=== PATIENT | male | born 1955 | race Caucasian/White ===

== ENCOUNTER 2023-05-04 16:04 | Inpatient (IN) ==
--- NOTE | 2023-05-04 16:22 | ED Triage Note ---
Date of Service May 04, 2023 History of Present Illness This patient was briefly evaluated while in triage. An abbreviated physical exam was performed. This patient is a 68-year-old Male who presents to the ED for evaluation via EMS feeling poorly for the last few days weak, shaky, hot/cold shakes/chills, nausea IV en route, 500cc fluid bolus breathing at baseline denies SWAIN, CP, abdominal pain, N/V/D urinary frequency Physical Exam GENERAL: Chronically ill-appearing 68-year-old male seated in a wheelchair. CARDIOVASCULAR: RRR RESPIRATORY: CTA ABDOMEN: BS x 4. Nontender to palpation. Initial orders for labs and / or imaging were placed and patient was placed in the waiting area until a bed is available. Please see further documentation for the full ED course.
--- NOTE | 2023-05-04 16:50 | XRay Report ---
XR chest 1V not portable HISTORY: weakness COMPARISON: Chest CT 09/15/2022. FINDINGS: Emphysema again noted. No pneumothorax. No pleural effusions. Stable scarlike densities aga in noted within the right lung apex. No new focal lung consolidations to suggest a pneumonia. No evid ence for pulmonary edema. The heart is normal in size for no acute fractures identified. IMPRESSION: No significant change compared to the prior study. No acute process. Emphysema again noted. ACT 112: Negative or not required by law. Electronically signed by: Rahul Kerr M.D. 05/04/2023 4:49 PM
[2023-05-04 16:52] LABS: Basophils # (auto) 0.06 K/uL (0.00-0.20); Basophils % (auto) 0.7 %; Eosinophils # (auto) 0.02 K/uL (0.00-0.50); Eosinophils % (auto) 0.2 %; Hematocrit (blood only) 41.5 % (42.0-52.0); Immature Granulocytes # (auto) 0.02 K/uL (0.01-0.20); Immature Granulocytes % (auto) 0.2 %; Lymphocytes # (auto) 1.52 K/uL (1.20-3.40); Mean Corpuscular Hemoglobin 32.1 pg (25.0-34.0); Mean Corpuscular Hgb Conc 36.1 g/dL (32.0-36.0); Mean Corpuscular Volume 88.9 fL (80.0-100.0); Mean Platelet Volume 8.9 fL (9.4-12.4); Monocytes # (auto) 0.56 K/uL (0.11-0.59); Neutrophils # (auto) 5.83 K/uL (1.40-6.50); Neutrophils % (auto) 72.9 %; Platelet Count 416 K/uL (130-400); RDW Coefficient of Variation 11.6 % (11.5-14.5); RDW Standard Deviation 37.1 fL (36.4-46.3); Red Blood Count 4.67 M/uL (4.70-6.10); White Blood Count 8.01 K/ul (4.8-10.8)
[2023-05-04 17:08] LABS: Alanine Aminotransferase 16 U/L (7-52); Albumin Globulin Ratio 1.2 (0.9-2); Alkaline Phosphatase 74 U/L (34-104); Anion Gap 10 (3-11); Aspartate Aminotransferase 24 U/L (13-39); BUN Creatinine Ratio 12.9 (10-20); Bilirubin,Total 0.5 mg/dl (0.2-1.0); Blood Urea Nitrogen 12 mg/dl (6-23); Calcium 10.6 mg/dl (8.6-10.3); Carbon Dioxide 31 mmol/L (21-32); Chloride 89 mmol/L (98-107); Creatine Kinase 80 U/L (30-223); Est GFR (African American) 98.1 ml/min; Est GFR (Non-African American) 84.6 ml/min; Globulin 4.2 gm/dl (2.5-4.0); Glucose 91 mg/dl (70-99(Fasting)); Magnesium 1.6 mg/dl (1.7-2.4); Potassium 3.7 mmol/L (3.5-5.1); Sodium 130 mmol/L (136-145); Total Protein 9.2 gm/dl (6.0-8.3)
[2023-05-04 17:14] LABS: Troponin I High Sensitivity 8.4 pg/ml (0-20)
[2023-05-04 17:21] LABS: Thyroid Stimulating Hormone 2.774 uIu/ml (0.300-4.500)
[2023-05-04 17:41] LABS: Adenovirus PCR Not Detected (NotDetected); Bordetella parapertussis PCR Not Detected (NotDetected); Bordetella pertussis PCR Not Detected (NotDetected); Chlamydia pneumoniae PCR Not Detected (NotDetected); Coronavirus 229E PCR Not Detected (NotDetected); Coronavirus CoV-2 (COVID19)PCR Not Detected (NotDetected); Coronavirus HKU1 PCR Not Detected (NotDetected); Coronavirus NL63 PCR Not Detected (NotDetected); Coronavirus OC43PCR Not Detected (NotDetected); Human Metapneumovirus PCR Not Detected (NotDetected); Influenza A PCR Not Detected (NotDetected); Influenza B PCR Not Detected (NotDetected); Mycoplasma pneumoniae PCR Not Detected (NotDetected); Parainfluenza Virus 1 PCR Not Detected (NotDetected); Parainfluenza Virus 2 PCR Not Detected (NotDetected); Parainfluenza Virus 3 PCR Not Detected (NotDetected); Parainfluenza Virus 4 PCR Not Detected (NotDetected); Respiratory Syncytial VirusPCR Not Detected (NotDetected); Rhinovirus/Enterovirus PCR Not Detected (NotDetected)
[2023-05-04] MEDS ORDERED: SODIUM CHLORIDE 0.9% 1,000 ML IV ONE ×2 (19:57→21:29)
[2023-05-04] MEDS ORDERED: MAGNESIUM SULFATE / D5W 1 GM/100 ML BAG IV STA (19:57)
--- NOTE | 2023-05-04 20:15 | Emergency Department Note ---
Impression & Plan Weakness, Diaphoresis, Acute dehydration, Hypomagnesemia, Lyme disease, Acute hyponatremia ED Provider Note NAME: LIZABETH HELM AGE: 68 SEX: M : 1955 ARRIVES VIA: Ambulance INFORMANT: [Patient] ED PROVIDER(S): [Donovan Ramirez MD] CHIEF COMPLAINT: Illness HISTORY OF PRESENT ILLNESS: The patient is a 68-year-old male who has felt poorly for a few days, mostly towards the evenings. He states that he feels nauseated, dizzy, his ears ring and he feels sweaty. He feels washed out. May be mildly short of breath. No real chest pain. The patient has not had diarrhea, he does urinate frequently but there has been no burning. There has been no increased cough. No abdominal pain. No recent tick bites. Patient admits that he maybe is not drinking enough, he typically just tries to drink coffee. PMHx/PSHx/Social Hx: See Below PHYSICAL EXAM: GENERAL: Patient is in no acute distress. Thin and frail. HEENT: No acute trauma, normocephalic atraumatic, mucous membranes dry, no nasal congestion. NECK: No stridor, no adenopathy, no meningismus, trachea is midline. LUNGS: Clear to auscultation bilaterally, no wheeze, no rhonchi, breath sounds equal. Breath sounds are quite diminished bilaterally. HEART: Without murmurs gallops or rubs, regular rate and rhythm. Heart tones are distant ABDOMEN: Soft, nontender, no peritonitis. EXTREMITIES: No cyanosis, full range of motion of all the joints without pain or difficulty. NEUROLOGIC: Oriented x 3, no acute motor or sensory deficits, no focal weakness. SKIN: No jaundice, no diaphoresis. DIFFERENTIAL DIAGNOSIS: Dehydration, electrolyte imbalance, tickborne illness, anemia, UTI, viral illness, cardiac ischemia, among others EMERGENCY DEPARTMENT PROCEDURES: MEDICAL DECISION MAKING: There is no leukocytosis or concerning anemia. There is a mild elevation to the platelet count. Sodium was low at 130. The patient has had some lower sodiums before but today's value is below his typical baseline. There is no renal failure. Magnesium low at 1.6. No concerning liver enzyme elevation. ECG showed a sinus tachycardia, no ischemia. Cardiac enzyme testing x1 was not consistent with acute cardiac injury. The patient appeared to be in a euthyroid state. Urinalysis suggested some dehydration, no infection. Lyme testing was equivocally positive. Respiratory bio fire was completely negative. Chest film showed emphysema, no pneumonia or CHF. On exam, the patient was thin and frail and appeared generally weak. The patient received IV saline, IV magnesium, IV ceftriaxone. The IV ceftriaxone was for potential Lyme disease. The cause for the patient's entire presentation is not completely clear. He certainly appears dehydrated. He does have some electrolyte abnormalities that require correction. He may have Lyme disease. Given all of his findings and his complaints, I do think a hospital stay is warranted. I spoke with the patient and case management, the on-call hospitalist was consulted. Prior/Outside records/notes reviewed: Primary care note from 03/21/2023 discussing his hypertension, emphysema and chronic health issues. ECG per my interpretation: Indication was weakness. The ECG shows a sinus tachycardia with a rate of 102. There is biatrial enlargement. There is no obvious ST elevation, no PVCs. QTc is 461. Continuous Cardiac Monitoring per my interpretation: An order was placed for continuous cardiac monitoring. The monitor shows a rate of 87 with normal sinus rhythm. Imaging/x-ray results per my interpretation: Chest x-ray shows findings of chronic lung disease/emphysema. No infiltrate or CHF Chronic Medical/Social conditions affecting care: Emphysema. Care/Management discussed with: Case management, the on-call hospitalist. Level of care consideration(s): After review of the information above and other included data: --I believe the patient requires escalation of care to admission DISPOSITION: Admission Past Med/Surg History Medical History Emphysema/COPD Hypertension Pulmonary nodule Surgical History History of tonsillectomy Family History Denies family history of Ovarian cancer Prostate cancer Myocardial infarction Breast cancer Colorectal cancer Social History Smoking Status: Current every day smoker Tobacco Type: Pipe Age Started Using Tobacco: 17; packs per day: 1; Cigarettes Per Day: quit cigarettes in June and smokes a pipe; Second Hand Exposure: No; Do You Dip or Chew Tobacco: No; Tobacco Cessation Education Requested by Patient: No Hx Alcohol Use: No Hx Substance Use: No Preferred Language: Azeri Communication Ability: Effective Visual Impairment: Limited Hearing Ability: Normal Syrup Maker Cook Required: No Beliefs That Will Affect Care: None marital status: Single Current Living Situation: Alone Current Living Situation Comment: lives with mother current occupational status: retired How many Children do You have: 1 Other Information That Helps Us Care for You: No Feels Safe at Home: Yes Safety Concerns: Feels Safe At This Time Childhood Exposure to Second-Hand Smoke: Yes Diet: regular caffeine: Yes during the past year weight has: remained stable Dental Care, Regularly: No Physical Activity Frequency: 1-2 Times per Week Seatbelt Use: always Sunscreen Use: No Assistive Devices: None Allergies Allergies Allergy/AdvReac Type Severity Reaction Status Date / Time No Known Allergies Allergy Verified 05/04/23 20:25 Home Meds Home Medications Medication Instructions Recorded Confirmed multivitamin 1 tab PO 3XWK 04/24/18 05/04/23 cholecalciferol (vitamin D3) 1,250 50,000 unit PO WE 05/04/23 05/04/23 mcg (50,000 unit) capsule Previous Rx's Medication Instructions Recorded albuterol sulfate 90 mcg/actuation 2 puff inhalation QID PRN 09/29/22 aerosol inhaler shortness of breath or wheezing #6.7 grams lisinopril 20 1 tab PO DAILY #90 tabs 12/16/22 mg-hydrochlorothiazide 25 mg tablet Results & Data (ED) Vital Signs Vital Signs - 24 hr 05/04/23 16:21 05/04/23 19:33 05/04/23 21:00 Temperature 36.5 C Temperature Source Oral Pulse Rate - Lying Pulse Rate - Sitting Pulse Rate - Standing Pulse Rate 104 H Pulse Rate [Finger] 87 87 Respiratory Rate 22 21 17 Respiratory Effort / Characteristics Non-Labored Respiratory Depth Normal Respiratory Pattern Regular Blood Pressure - Lying Blood Pressure - Sitting Blood Pressure- Standing Blood Pressure 176/99 H Blood Pressure [Right Arm] 183/90 H 177/96 H Blood Pressure Mean 124 Blood Pressure Mean [Right Arm] 121 123 Blood Pressure Position Sitting Pulse Oximetry 98 95 94 Oxygen Delivery Method Room Air Room Air Room Air Sepsis Recent Fever Within 48 Hours No Sepsis New/Unexplained Change in Mental Status No Sepsis Action Taken by Nursing No Action Required 05/04/23 21:20 Temperature Temperature Source Pulse Rate - Lying 87 Pulse Rate - Sitting 94 H Pulse Rate - Standing 101 H Pulse Rate Pulse Rate [Finger] Respiratory Rate Respiratory Effort / Characteristics Respiratory Depth Respiratory Pattern Blood Pressure - Lying 177/96 H Blood Pressure - Sitting 166/90 H Blood Pressure- Standing 145/88 H Blood Pressure Blood Pressure [Right Arm] Blood Pressure Mean Blood Pressure Mean [Right Arm] Blood Pressure Position Pulse Oximetry Oxygen Delivery Method Sepsis Recent Fever Within 48 Hours Sepsis New/Unexplained Change in Mental Status Sepsis Action Taken by Long Term Medications Current Medication List: was personally reviewed by me Laboratory Data Attestation: I reviewed the patient's lab results. 05/05/23 12:33 05/05/23 05:51 Lab Results 05/04/23 05/04/23 05/04/23 Range/Units 15:46 16:25 20:18 WBC 8.01 (4.8-10.8) K/ul RBC 4.67 L (4.70-6.10) M/uL Hgb 15.0 (14.0-18.0) g/dl Hct 41.5 L (42.0-52.0) % MCV 88.9 (80.0-100.0) fL MCH 32.1 (25.0-34.0) pg MCHC 36.1 H (32.0-36.0) g/dL RDW Std Deviation 37.1 (36.4-46.3) fL RDW Coeff of Angelo 11.6 (11.5-14.5) % Plt Count 416 H (130-400) K/uL MPV 8.9 L (9.4-12.4) fL Immature Gran % (Auto) 0.2 % Neut % (Auto) 72.9 % Lymph % (Auto) 19.0 % Lucas % (Auto) 7.0 % Eos % (Auto) 0.2 % Baso % (Auto) 0.7 % Neut # (Auto) 5.83 (1.40-6.50) K/uL Lymph # (Auto) 1.52 (1.20-3.40) K/uL Lucas # (Auto) 0.56 (0.11-0.59) K/uL Eos # (Auto) 0.02 (0.00-0.50) K/uL Baso # (Auto) 0.06 (0.00-0.20) K/uL Immature Gran # (Auto) 0.02 (0.01-0.20) K/uL Sodium 130 L (136-145) mmol/L Potassium 3.7 (3.5-5.1) mmol/L Chloride 89 L (98-107) mmol/L Carbon Dioxide 31 (21-32) mmol/L Anion Gap 10 (3-11) BUN 12 (6-23) mg/dl Creatinine 0.93 (0.6-1.4) mg/dl Est Cr Clr Drug Dosing Not Reportable Est GFR ( Amer) 98.1 ml/min Est GFR (Non-Af Amer) 84.6 ml/min BUN/Creatinine Ratio 12.9 (10-20) Glucose 91 (70-99(Fasting)) mg/dl Lactate (0.4-2.0) mmol/L Calcium 10.6 H (8.6-10.3) mg/dl Magnesium 1.6 L (1.7-2.4) mg/dl Total Bilirubin 0.5 (0.2-1.0) mg/dl AST 24 (13-39) U/L ALT 16 (7-52) U/L Alkaline Phosphatase 74 (34-104) U/L Total Creatine Kinase 80 (30-223) U/L Troponin I High Sens 8.4 (0-20) pg/ml Total Protein 9.2 H (6.0-8.3) gm/dl Albumin 5.0 (3.4-5.0) gm/dl Globulin 4.2 H (2.5-4.0) gm/dl Albumin/Globulin Ratio 1.2 (0.9-2) TSH 2.774 (0.300-4.500) uIu/ml Urine Color Yellow Urine Appearance Clear (Clear) Urine pH 6.5 (4.5-7.5) Ur Specific [place] 1.019 (1.000-1.030) Urine Protein 1+ H (Negative) Urine Glucose (UA) Negative (Negative) Urine Ketones 1+ H (Negative) Urine Blood Negative (Negative) Urine Nitrite Negative (Negative) Urine Bilirubin Negative (Negative) Urine Urobilinogen Negative (Negative) Ur Leukocyte Esterase Negative (Negative) Urine WBC (Auto) 1-5 (0-5) /hpf Urine RBC (Auto) 5-10 H (0-4) /hpf U Hyaline Cast (Auto) 0 (0-5) /lpf U Epithel Cells (Auto) 0-5 (0-5) /lpf Urine Bacteria (Auto) Negative (Negative) Adenovirus (PCR) Not Detected (NotDetected) B. pertussis DNA (PCR) Not Detected (NotDetected) B.parapertussis DNA PCR Not Detected (NotDetected) Lyme Disease IgG Ab (Negative) Lyme Disease IgM Ab (Negative) C. pneumoniae DNA (PCR) Not Detected (NotDetected) Coronavirus OC43 (PCR) Not Detected (NotDetected) Coronavirus HKU1 (PCR) Not Detected (NotDetected) Coronavirus 229E (PCR) Not Detected (NotDetected) SARS-CoV-2 (PCR) Not Detected (NotDetected) Coronavirus NL63 (PCR) Not Detected (NotDetected) Human Metapneumovir PCR Not Detected (NotDetected) Influenza Type A (PCR) Not Detected (NotDetected) Influenza Type B (PCR) Not Detected (NotDetected) M. pneumoniae (PCR) Not Detected (NotDetected) Parainfluenza 1 (PCR) Not Detected (NotDetected) Parainfluenza 2 (PCR) Not Detected (NotDetected) Parainfluenza 3 (PCR) Not Detected (NotDetected) Parainfluenza 4 (PCR) Not Detected (NotDetected) RSV (PCR) Not Detected (NotDetected) Entero/Rhino (PCR) Not Detected (NotDetected) 05/04/23 Range/Units 20:44 WBC (4.8-10.8) K/ul RBC (4.70-6.10) M/uL Hgb (14.0-18.0) g/dl Hct (42.0-52.0) % MCV (80.0-100.0) fL MCH (25.0-34.0) pg MCHC (32.0-36.0) g/dL RDW Std Deviation (36.4-46.3) fL RDW Coeff of Angelo (11.5-14.5) % Plt Count (130-400) K/uL MPV (9.4-12.4) fL Immature Gran % (Auto) % Neut % (Auto) % Lymph % (Auto) % Lucas % (Auto) % Eos % (Auto) % Baso % (Auto) % Neut # (Auto) (1.40-6.50) K/uL Lymph # (Auto) (1.20-3.40) K/uL Lucas # (Auto) (0.11-0.59) K/uL Eos # (Auto) (0.00-0.50) K/uL Baso # (Auto) (0.00-0.20) K/uL Immature Gran # (Auto) (0.01-0.20) K/uL Sodium (136-145) mmol/L Potassium (3.5-5.1) mmol/L Chloride (98-107) mmol/L Carbon Dioxide (21-32) mmol/L Anion Gap (3-11) BUN (6-23) mg/dl Creatinine (0.6-1.4) mg/dl Est Cr Clr Drug Dosing Est GFR ( Amer) ml/min Est GFR (Non-Af Amer) ml/min BUN/Creatinine Ratio (10-20) Glucose (70-99(Fasting)) mg/dl Lactate 1.2 (0.4-2.0) mmol/L Calcium (8.6-10.3) mg/dl Magnesium (1.7-2.4) mg/dl Total Bilirubin (0.2-1.0) mg/dl AST (13-39) U/L ALT (7-52) U/L Alkaline Phosphatase (34-104) U/L Total Creatine Kinase (30-223) U/L Troponin I High Sens (0-20) pg/ml Total Protein (6.0-8.3) gm/dl Albumin (3.4-5.0) gm/dl Globulin (2.5-4.0) gm/dl Albumin/Globulin Ratio (0.9-2) TSH (0.300-4.500) uIu/ml Urine Color Urine Appearance (Clear) Urine pH (4.5-7.5) Ur Specific [place] (1.000-1.030) Urine Protein (Negative) Urine Glucose (UA) (Negative) Urine Ketones (Negative) Urine Blood (Negative) Urine Nitrite (Negative) Urine Bilirubin (Negative) Urine Urobilinogen (Negative) Ur Leukocyte Esterase (Negative) Urine WBC (Auto) (0-5) /hpf Urine RBC (Auto) (0-4) /hpf U Hyaline Cast (Auto) (0-5) /lpf U Epithel Cells (Auto) (0-5) /lpf Urine Bacteria (Auto) (Negative) Adenovirus (PCR) (NotDetected) B. pertussis DNA (PCR) (NotDetected) B.parapertussis DNA PCR (NotDetected) Lyme Disease IgG Ab Positive A (Negative) Lyme Disease IgM Ab Negative (Negative) C. pneumoniae DNA (PCR) (NotDetected) Coronavirus OC43 (PCR) (NotDetected) Coronavirus HKU1 (PCR) (NotDetected) Coronavirus 229E (PCR) (NotDetected) SARS-CoV-2 (PCR) (NotDetected) Coronavirus NL63 (PCR) (NotDetected) Human Metapneumovir PCR (NotDetected) Influenza Type A (PCR) (NotDetected) Influenza Type B (PCR) (NotDetected) M. pneumoniae (PCR) (NotDetected) Parainfluenza 1 (PCR) (NotDetected) Parainfluenza 2 (PCR) (NotDetected) Parainfluenza 3 (PCR) (NotDetected) Parainfluenza 4 (PCR) (NotDetected) RSV (PCR) (NotDetected) Entero/Rhino (PCR) (NotDetected) Administered Medications Enoxaparin Sodium (Enoxaparin Inj 40 Mg/0.4 Ml Syr) 40 mg SQ QAM JONNY Stop: 06/04/23 08:59 Last Admin: 05/05/23 08:19 Dose: 40 mg Documented By: [facility] Lisinopril/HCTZ (Lisinopril/Hctz 20/25mg 1 Tab) 1 tab PO DAILY [facility] Stop: 06/04/23 08:59 Last Admin: 05/05/23 08:19 Dose: 1 tab Documented By: [facility] Ceftriaxone Sodium 1,000 mg/ (Dextrose) 50 mls @ 100 mls/hr IV Q24H [facility]; Protocol Stop: 05/07/23 08:59 Last Infusion: 05/05/23 08:44 Dose: Infused Documented By: Admin: 05/05/23 08:14 Dose: 100 mls/hr Documented By: [facility] Multivitamins (Multivitamin Tab) 1 tab PO MoWeFr [facility] Stop: 06/04/23 08:59 Last Admin: 05/05/23 08:19 Dose: 1 tab Documented By: [facility] Nicotine (Nicotine 21 Mg/24 Hr Tdsy) 21 mg TD QAM JONNY Stop: 06/04/23 11:59 Last Admin: 05/05/23 13:16 Dose: 21 mg Documented By: [facility] Discontinued Medications Sodium Chloride (Nss) 1,000 mls @ 999 mls/hr IV .Q1H1M ONE Stop: 05/04/23 20:57 Last Infusion: 05/04/23 21:43 Dose: Infused Documented By: Admin: 05/04/23 20:10 Dose: 999 mls/hr Documented By: [facility] Magnesium Sulfate/Dextrose (Magnesium Sulfate / D5w) 1 gm in 100 mls @ 100 mls/hr IV NOW STA Stop: 05/04/23 20:56 Last Infusion: 05/04/23 21:43 Dose: Infused Documented By: Admin: 05/04/23 20:26 Dose: 100 mls/hr Documented By: [facility] Sodium Chloride (Nss) 1,000 mls @ 999 mls/hr IV .Q1H1M ONE Stop: 05/04/23 22:29 Last Infusion: 05/05/23 00:17 Dose: Infused Documented By: Admin: 05/04/23 21:53 Dose: 999 mls/hr Documented By: [facility] Ceftriaxone Sodium (Rocephin) 2,000 mg in 50 mls @ 100 mls/hr IV NOW STA Stop: 05/04/23 22:32 Last Infusion: 05/05/23 00:16 Dose: Infused Documented By: Admin: 05/04/23 22:48 Dose: 100 mls/hr Documented By: [facility] Lactated Ringer's (Lr) 1,000 mls @ 80 mls/hr IV .[id number] JONNY Stop: 06/03/23 23:29 Last Admin: 05/05/23 00:37 Dose: 80 mls/hr Documented By: [facility] Magnesium Sulfate/Dextrose (Magnesium Sulfate / D5w) 1 gm in 100 mls @ 50 mls/hr IV Q2H JONNY Stop: 05/05/23 11:44 Last Admin: 05/05/23 11:11 Dose: 50 mls/hr Documented By: Infusion: 05/05/23 10:54 Dose: Infused Documented By: Admin: 05/05/23 08:54 Dose: 50 mls/hr Documented By: SPEEDY Miscellaneous (Patient's Height &/Or Weight Needed) 1 each N/A ONE STA Stop: 05/04/23 23:35 Last Admin: 05/05/23 00:38 Dose: 1 each Documented By: [facility] Imaging Data Radiologist's Impression: Chest X-Ray 05/04/23 16:22 XR chest 1V not portable HISTORY: weakness COMPARISON: Chest CT 09/15/2022. FINDINGS: Emphysema again noted. No pneumothorax. No pleural effusions. Stable scarlike densities again noted within the right lung apex. No new focal lung consolidations to suggest a pneumonia. No evidence for pulmonary edema. The heart is normal in size for no acute fractures identified. IMPRESSION: No significant change compared to the prior study. No acute process. Emphysema again noted. ACT 112: Negative or not required by law. Electronically signed by: Rahul Kerr M.D. 05/04/2023 4:49 PM Discharge Plan Visit Data Chief Complaint: Illness Stated Complaint: DIAPHORETIC IN THE EVENINGS, NOT FEELING WELL ED Provider: Donovan Ramirez Discharge Problem: Weakness, Diaphoresis, Acute dehydration, Hypomagnesemia, Lyme disease, Acute hyponatremia Patient Disposition: Admitted As Inpatient Condition: Fair Discharge Instructions Interventions: ED Discharge Assessment Last Done: 05/04/23 23:39
[2023-05-04 21:38] LABS: Lyme Ab IgM w/WB Rflx Negative (Negative)
[2023-05-04 21:41] LABS: Lyme Ab IgG w/WB Rflx Positive (Negative)
[2023-05-04 21:44] LABS: Appearance Urine Clear (Clear); Bacteria Urine Automated Negative (Negative); Bilirubin Urine Negative (Negative); Blood Urine Negative (Negative); Cast Urine Automated 0 /lpf (0-5); Color Urine Yellow; Epithelial Cell Urine Auto 0-5 /lpf (0-5); Glucose Urine UA Negative (Negative); Ketones Urine 1+ (Negative); Leukocyte Esterase Urine Negative (Negative); Nitrite Urine Negative (Negative); Protein Urine 1+ (Negative); Specific Gravity Urine 1.019 (1.000-1.030); Urobilinogen Urine Negative (Negative); pH Urine 6.5 (4.5-7.5)
[2023-05-04] MEDS ORDERED: cefTRIAXone SODIUM 2,000 MG/50 ML BAG IV STA (22:03)
--- NOTE | 2023-05-04 23:13 | History & Physical Report ---
Date of Service May 04, 2023 Assessment & Plan (1) Illness, unspecified: (2) HTN (hypertension): (3) Emphysema of lung: Plan Pt is a 68 yo male with a past medical history of emphysema, HTN, current smoker who presents to the hospital on 05/04/23 for generalized illness. Generalized illness - CXR wnl, UA wnl, blood cultures pending - lyme IgG +, western blot pending - suspect viral illness, but pt given ceftriaxone to cover for tick-borne as presentation is very nonspecific - will give LR 80/hr - PT/OT evals placed Hyponatremia - Na 130 - appears chronic, as last two values were 132, 133 earlier this year - daily BMP Hypomagnesia - mag 1.6 - repleted in ED - am mag ordered HTN - continue lisinopril/HCTZ Emphysema - continue albuterol VTE prophylaxis: Lovenox 40 SQ qam Diet: regular History of Present Illness Chief Complaint: Generalized illness Primary Care Provider: Ada Ball MD Pt is a 68 yo male with a past medical history of emphysema, HTN, current smoker who presents to the hospital on 05/04/23 for generalized illness. Pt states that last night he started to feel some generalized weakness, fatigue, myalgias, nausea, and sweats. He states he overall felt very lousy. He states that this morning he felt fine, but this evening he started to get the same symptoms again. No fevers. Does note decreased appetite. No congestion, sore throat, cough is chronic from his emphysema and unchanged, no shortness of breath or chest pain, and no vomiting or diarrhea. He states he use to work outside a lot and a lot of his coworkers got lyme and other tick borne illnesses, but he never did. He does note that he worked outside a lot this summer doing yard work. Never noticed a tick bite or ticks on him or in his house. He lives at home alone and completes his ADLs on his own according to him. No blood in the stool or urine. No other complaints at this time. Allergies Allergy/AdvReac Type Severity Reaction Status Date / Time No Known Allergies Allergy Verified 05/04/23 20:25 Home Medications Medication Instructions Recorded Confirmed Type multivitamin 1 tab PO 3XWK 04/24/18 05/04/23 History albuterol sulfate 90 mcg/actuation 2 puff inhalation QID PRN 09/29/22 05/04/23 Rx aerosol inhaler shortness of breath or wheezing #6.7 grams lisinopril 20 1 tab PO DAILY #90 tabs 12/16/22 05/04/23 Rx mg-hydrochlorothiazide 25 mg tablet cholecalciferol (vitamin D3) 1,250 50,000 unit PO WE 05/04/23 05/04/23 History mcg (50,000 unit) capsule Past Med/Surg History Medical History Emphysema/COPD Hypertension Pulmonary nodule Surgical History History of tonsillectomy Family History Denies family history of Ovarian cancer Prostate cancer Myocardial infarction Breast cancer Colorectal cancer Social History Smoking Status: Current every day smoker Tobacco Type: Pipe Age Started Using Tobacco: 17; packs per day: 1; Cigarettes Per Day: quit cigarettes in June and smokes a pipe; Second Hand Exposure: Yes (parents smoked); Do You Dip or Chew Tobacco: No; Hx Alcohol Use: No Hx Substance Use: No Preferred Language: Syriac Communication Ability: Effective Visual Impairment: Limited Hearing Ability: Normal 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 Physical Exam Physical Exam: General: Alert and oriented, no acute distress, thin HEENT: Normocephalic, Cardio: Regular rate and rhythm, Resp: Lungs clear to auscultation b/l, GI: Soft and nontender, nondistended, bowel sounds active Skin: Warm, pink, dry, Results & Data Results & Data Vital Signs (Past 12 Hours) Vital Signs Temp Pulse Pulse Resp BP BP Pulse Ox 05/04/23 21:00 87 17 177/96 H 94 05/04/23 19:33 87 21 183/90 H 95 05/04/23 16:21 36.5 C 104 H 22 176/99 H 98 O2 Del Method 05/04/23 21:00 Room Air 05/04/23 19:33 Room Air 05/04/23 16:21 Room Air Resident Activity Tracking Resident Involvement: Resident Care Provided Care Provided: Adult Hospital Medicine
[2023-05-04] MEDS ORDERED: LACTATED RINGER'S 1,000 ML IV SCH (23:30)
[2023-05-04] MEDS ORDERED: Patient's HEIGHT &/or WEIGHT Needed STA (23:34)
[2023-05-05] MEDS ORDERED: ALBUTEROL HFA 8 GM INHALER INH PRN (00:15)
[2023-05-05 06:24] LABS: Hematocrit (blood only) 35.3 % (42.0-52.0); Hemoglobin 12.7 g/dl (14.0-18.0); Mean Corpuscular Hemoglobin 32.2 pg (25.0-34.0); Mean Corpuscular Volume 89.6 fL (80.0-100.0); Mean Platelet Volume 8.6 fL (9.4-12.4); Platelet Count 312 K/uL (130-400); RDW Coefficient of Variation 11.5 % (11.5-14.5); RDW Standard Deviation 37.2 fL (36.4-46.3); Red Blood Count 3.94 M/uL (4.70-6.10)
[2023-05-05 06:47] LABS: Calcium 8.9 mg/dl (8.6-10.3); Creatinine Clr Calc Pharmacy 57.4 ml/min; Est GFR (African American) 108.8 ml/min; Est GFR (Non-African American) 93.9 ml/min; Magnesium 1.6 mg/dl (1.7-2.4); Phosphorus 2.9 mg/dl (2.5-4.9); Potassium 3.8 mmol/L (3.5-5.1)
--- NOTE | 2023-05-05 07:32 | Hospitalist Progress Note ---
Date of Service May 05, 2023 Assessment & Plan (1) Fatigue: (2) Myalgia: (3) Nausea: (4) Hyponatremia: (5) Hypomagnesemia: (6) HTN (hypertension): (7) Emphysema of lung: Plan Pt is a 68 yo male with a past medical history of emphysema, HTN, current smoker who presents to the hospital on 05/04/23 for generalized illness. Fatigue/Myalgia/Nausea: - Uncertain etiology. - CXR wnl, UA showed 1+ protein and some red cels, but no evidence of UTI, blood cultures pending - Lyme IgG +, Western blot pending - Suspect viral illness, but patient given Ceftriaxone to cover for tick-borne illness as presentation is very nonspecific - PT/OT evals placed Hyponatremia, chronic: - Last NA: 132 - May be secondary to HCTZ, will Hold HCTZ - Repeat BMP AM Hypomagnesia: - Mag 1.6 again this AM - Replacing Mag again, s/p Magnesium Sulfate 1 gm - Repeat BMP AM HTN: - Orthostatic V/s negative -Hold HCT -Lisinopril 10 mg Emphysema: - Chronic cough - Continue Albuterol PRN Disposition: MedSurg VTE prophylaxis: Lovenox 40 SQ qam Diet: regular Admission and Anticipated Discharge Date Admission Date: May 04, 2023 Supervising Physician Co-Signing Physician Notes Resident Physician Supervision Note: I independently interviewed and examined the patient and verified the young history and physical, reviewed labs and image studies and agree with resident findings and care plan. Recheck sodium level further down at 128. Hold HCTZ. follow up in am. Dianne Gamboa is a 68 year-old male with a past medical history significant for emphysema, hypertension, and current smoker who presents to the hospital on 05/04/2023 with a generalized illness. Patient reports that he had been feeling unwell for the past few days with on/off symptoms of generalized weakness, myalgias, fatigue, chills, sweats, and nausea. Symptoms appear to worsen in the later afternoon and towards the evening. Sitting down on his couch and resting appears to help relieve symptoms; however, last night sitting down on his couch actually aggravated his symptoms, which he felt was unusual so he presented to the ED. He reports that he has been having increased post-nasal drip as of late and is having some discomfort in his sinuses. He also endorses a history of chronic cough attributed to his history of emphysema, and he notes that the cough is unchanged. He also notes decreased appetite for the past few months, but not much of a during the past few days. For breakfast, he usually has cereal with milk or a bagel. For lunch he would have a frozen [employer] sandwich and for dinner he generally has a microwave dinner. Does not have much fresh produce in his diet but will occasionally eat canned fruits and vegetables. He denies any fever, headaches, chest pain, shortness of breath, vomiting, congestion, sore throat, abdominal pain, or diarrhea. No blood in the stool or urine. He denies any recent changes in lifestyle or medication. However, he recently started taking Vitamin D 50,000 IU weekly for about a month. He is a current smoker and has been smoking for 40 years. He alternates between smoking cigarettes (1-2 PPD) or smoking tobacco from his pipe. He has been more active lately with doing yard work in the summer and more recently doing cleanup of his basement. He has never noticed a tick bite or ticks on him or in his house. He lives at home with this cat and completes his ADLs on his own according to him. While admitted, Ceftriaxone was given. Today he reports feeling much better. He is still with some nausea, mild myalgia, and fatigue, but the chills and sweats have been resolved. He is having a nervous nicotine withdrawal and is interested in having a nicotine patch. Review of Systems Review of Systems: Negative except those stated in the HPI. Physical Exam Physical Exam: General: Alert and oriented, no acute distress, thin HEENT: Normocephalic and atraumatic. PERRLA. Extraocular movements are intact. No evidence of cervical lymphadenoapthy. Cardio: Regular rate and rhythm. No murmurs, rubs, or gallops. Resp: Lungs clear to auscultation bilaterally. GI: Soft, nontender, and nondistended. Normoactive bowel sounds in all 4 quadrants. Skin: Warm, pink, and dry. Results & Data Results & Data Vital Signs (Past 12 Hours) Vital Signs Temp Pulse Resp BP Pulse Ox O2 Del Method 05/05/23 02:17 82 94 Room Air 05/04/23 23:55 Room Air 05/04/23 23:55 Room Air 05/04/23 23:55 36.5 C 107 H 20 171/90 H 91 Room Air 05/04/23 21:00 87 17 177/96 H 94 Room Air 05/04/23 19:33 87 21 183/90 H 95 Room Air Resident Activity Tracking Resident Involvement: Resident Care Provided Care Provided: Adult Hospital Medicine
[2023-05-05] MEDS: cefTRIAXone SODIUM 1,000 MG in DEXTROSE 5 % MINI-B 50 ML IV SCH (08:14)
[2023-05-05] MEDS: ENOXAPARIN INJ 40 MG/0.4 ML SYR SQ SCH (08:19)
--- NOTE | 2023-05-05 08:52 | Electrocardiogram Report ---
Test Reason : Blood Pressure : / mmHG Vent. Rate : 102 BPM Atrial Rate : 102 BPM P-R Int : 188 ms QRS Dur : 080 ms QT Int : 354 ms P-R-T Axes : 072 099 072 degrees QTc Int : 461 ms Sinus tachycardia Biatrial enlargement Rightward axis Pulmonary disease pattern Abnormal ECG No previous ECGs available Confirmed by Rodolfo Kumar ([id number]) on 05/05/2023 8:52:20 AM Referred By: REFERRED SELF Confirmed By:Rodolfo Kumar
[2023-05-05] MEDS: MAGNESIUM SULFATE / D5W 1 GM/100 ML BAG IV SCH ×2 (08:54→11:11)
[2023-05-05] MEDS ORDERED: LISINOPRIL/HCTZ 20/25MG 1 TAB PO SCH (09:00)
[2023-05-05] MEDS ORDERED: MULTIVITAMIN TAB PO SCH (09:00)
[2023-05-05 13:08] LABS: Hemoglobin 12.5 g/dl (14.0-18.0)
[2023-05-05] MEDS: NICOTINE 21 MG/24 HR TDSY TD SCH (13:16)
[2023-05-05 16:08] LABS: BUN Creatinine Ratio 14.3 (10-20); Calcium 9.4 mg/dl (8.6-10.3); Creatinine Clr Calc Pharmacy 52.6 ml/min; Est GFR (Non-African American) 90.6 ml/min; Potassium 3.8 mmol/L (3.5-5.1)
--- NOTE | 2023-05-06 07:22 | Hospitalist Progress Note ---
Date of Service May 06, 2023 Assessment & Plan (1) Fatigue: (2) Myalgia: (3) Nausea: (4) Hyponatremia: (5) Hypomagnesemia: (6) HTN (hypertension): (7) Emphysema of lung: Plan Pt is a 68 yo male with a past medical history of emphysema, HTN, current smoker who presents to the hospital on 05/04/23 for generalized illness. Fatigue/Myalgia/Nausea: - Uncertain etiology. - CXR wnl, UA showed 1+ protein and some red cels, but no evidence of UTI, blood cultures pending - Lyme IgG +, Western blot pending - Suspect viral illness, but patient given Ceftriaxone to cover for tick-borne illness as presentation is very nonspecific - PT/OT evals placed Hyponatremia, chronic: - Last NA: 132, recheck yesterday 128 - May be secondary to HCTZ, will Hold HCTZ - Repeat BMP AM Hypomagnesia: - Mag 1.6 again this AM - Replacing Mag again, s/p Magnesium Sulfate 1 gm - Repeat BMP AM HTN: - Orthostatic V/s negative -Hold HCT -Lisinopril 10 mg Emphysema: - Chronic cough - Continue Albuterol PRN Disposition: MedSurg VTE prophylaxis: Lovenox 40 SQ qam Diet: regular Admission and Anticipated Discharge Date Admission Date: May 04, 2023 Dianne Gamboa is a 68 year-old male with a past medical history significant for emphysema, hypertension, and current smoker who presents to the hospital on 05/04/2023 with a generalized illness. Patient reports that he had been feeling unwell for the past few days with on/off symptoms of generalized weakness, myalgias, fatigue, chills, sweats, and nausea. Symptoms appear to worsen in the later afternoon and towards the evening. Sitting down on his couch and resting appears to help relieve symptoms; however, last night sitting down on his couch actually aggravated his symptoms, which he felt was unusual so he presented to the ED. He reports that he has been having increased post-nasal drip as of late and is having some discomfort in his sinuses. He also endorses a history of chronic cough attributed to his history of emphysema, and he notes that the cough is unchanged. He also notes decreased appetite for the past few months, but not much of a during the past few days. For breakfast, he usually has cereal with milk or a bagel. For lunch he would have a frozen [employer] sandwich and for dinner he generally has a microwave dinner. Does not have much fresh produce in his diet but will occasionally eat canned fruits and vegetables. He denies any fever, headaches, chest pain, shortness of breath, vomiting, congestion, sore throat, abdominal pain, or diarrhea. No blood in the stool or urine. He denies any recent changes in lifestyle or medication. However, he recently started taking Vitamin D 50,000 IU weekly for about a month. He is a current smoker and has been smoking for 40 years. He alternates between smoking cigarettes (1-2 PPD) or smoking tobacco from his pipe. He has been more active lately with doing yard work in the summer and more recently doing cleanup of his basement. He has never noticed a tick bite or ticks on him or in his house. He lives at home with this cat and completes his ADLs on his own according to him. While admitted, Ceftriaxone was given. Today he reports feeling much better. He is still with some nausea, mild myalgia, and fatigue, but the chills and sweats have been resolved. He is having a nervous nicotine withdrawal and is interested in having a nicotine patch. Review of Systems Review of Systems: Per HPI. Physical Exam Physical Exam: General: Alert and oriented, no acute distress, thin HEENT: Normocephalic, Cardio: Regular rate and rhythm, Resp: Lungs clear to auscultation b/l, GI: Soft and nontender, nondistended, bowel sounds active Skin: Warm, pink, dry, Results & Data Results & Data Vital Signs (Past 12 Hours) Vital Signs Temp Pulse Resp BP Pulse Ox O2 Del Method 05/05/23 21:24 36.6 C 69 18 163/80 H 93 Room Air 05/05/23 21:20 Room Air
[2023-05-06 07:36] LABS: Hematocrit (blood only) 39.9 % (42.0-52.0); Hemoglobin 14.2 g/dl (14.0-18.0); Mean Corpuscular Hemoglobin 32.1 pg (25.0-34.0); Mean Corpuscular Hgb Conc 35.6 g/dL (32.0-36.0); Mean Corpuscular Volume 90.1 fL (80.0-100.0); Mean Platelet Volume 8.7 fL (9.4-12.4); Platelet Count 382 K/uL (130-400); RDW Coefficient of Variation 11.6 % (11.5-14.5); RDW Standard Deviation 38.1 fL (36.4-46.3); Red Blood Count 4.43 M/uL (4.70-6.10); White Blood Count 9.13 K/ul (4.8-10.8)
[2023-05-06 08:03] LABS: Calcium 9.7 mg/dl (8.6-10.3); Magnesium 1.8 mg/dl (1.7-2.4); Potassium 3.6 mmol/L (3.5-5.1)
[2023-05-06 08:09] LABS: BUN Creatinine Ratio 15.4 (10-20); Creatinine Clr Calc Pharmacy 48.6 ml/min; Est GFR (African American) 100.7 ml/min; Est GFR (Non-African American) 86.9 ml/min; Phosphorus 3.7 mg/dl (2.5-4.9)
[2023-05-06] MEDS: NICOTINE 21 MG/24 HR TDSY TD SCH (08:31)
[2023-05-06] MEDS: ENOXAPARIN INJ 40 MG/0.4 ML SYR SQ SCH (08:34)
[2023-05-06] MEDS: cefTRIAXone SODIUM 1,000 MG in DEXTROSE 5 % MINI-B 50 ML IV SCH (08:38)
[2023-05-06] MEDS ORDERED: lisinopril 20 MG TAB PO SCH (09:00)
--- NOTE | 2023-05-06 09:56 | Discharge Summary ---
Date of Service May 06, 2023 Admission HPI Per Admitting Provider Pt is a 68 yo male with a past medical history of emphysema, HTN, current smoker who presents to the hospital on 05/04/23 for generalized illness. Pt states that last night he started to feel some generalized weakness, fatigue, myalgias, nausea, and sweats. He states he overall felt very lousy. He states that this morning he felt fine, but this evening he started to get the same symptoms again. No fevers. Does note decreased appetite. No congestion, sore throat, cough is chronic from his emphysema and unchanged, no shortness of breath or chest pain, and no vomiting or diarrhea. He states he use to work outside a lot and a lot of his coworkers got lyme and other tick borne illnesses, but he never did. He does note that he worked outside a lot this summer doing yard work. Never noticed a tick bite or ticks on him or in his house. He lives at home alone and completes his ADLs on his own according to him. No blood in the stool or urine. No other complaints at this time. Admission Exam Per Admitting Provider General: Alert and oriented, no acute distress, thin HEENT: Normocephalic, Cardio: Regular rate and rhythm, Resp: Lungs clear to auscultation b/l, GI: Soft and nontender, nondistended, bowel sounds active Skin: Warm, pink, dry, Principal Diagnosis Fatigue Hyponatremia Discharge Exam Constitutional WD/WN, vitals as above Respiratory normal respiratory effort, lungs clear to auscultation Cardiovascular RRR, no murmur, no edema Gastrointestinal (Abdomen) normal bowel sounds, soft, nontender, no hepatosplenomegaly Musculoskeletal no cyanosis or clubbing, extremities motor strength 5/5 Discharge Data Allergies Allergy/AdvReac Type Severity Reaction Status Date / Time No Known Allergies Allergy Verified 05/04/23 20:25 Consultations 05/04/23 22:25 ED Decision to Admit Stat Ordered Studies Microbiology 05/04/23 20:44 Blood Aerobic Blood Culture - Preliminary No growth in Aerobic bottle after 24 hours. 05/04/23 20:44 Blood Anaerobic Blood Culture - Preliminary No growth in Anaerobic bottle after 24 hours. 05/04/23 20:44 Blood Aerobic Blood Culture - Preliminary No growth in Aerobic bottle after 24 hours. 05/04/23 20:44 Blood Anaerobic Blood Culture - Preliminary No growth in Anaerobic bottle after 24 hours. Labs 05/04/23 05/04/23 05/04/23 15:46 16:25 20:18 WBC 8.01 RBC 4.67 L Hgb 15.0 Hct 41.5 L MCV 88.9 MCH 32.1 MCHC 36.1 H RDW Std Deviation 37.1 RDW Coeff of Angelo 11.6 Plt Count 416 H MPV 8.9 L Immature Gran % (Auto) 0.2 Neut % (Auto) 72.9 Lymph % (Auto) 19.0 [place]wsley % (Auto) 7.0 Eos % (Auto) 0.2 Baso % (Auto) 0.7 Neut # (Auto) 5.83 Lymph # (Auto) 1.52 [place]ley # (Auto) 0.56 Eos # (Auto) 0.02 Baso # (Auto) 0.06 Immature Gran # (Auto) 0.02 Sodium 130 L Potassium 3.7 Chloride 89 L Carbon Dioxide 31 Anion Gap 10 BUN 12 Creatinine 0.93 Est Cr Clr Drug Dosing Not Reportable Est GFR ( Amer) 98.1 Est GFR (Non-Af Amer) 84.6 BUN/Creatinine Ratio 12.9 Glucose 91 Osmolality Lactate Calcium 10.6 H Phosphorus Magnesium 1.6 L Total Bilirubin 0.5 AST 24 ALT 16 Alkaline Phosphatase 74 Total Creatine Kinase 80 Troponin I High Sens 8.4 Total Protein 9.2 H Albumin 5.0 Globulin 4.2 H Albumin/Globulin Ratio 1.2 TSH 2.774 Urine Color Yellow Urine Appearance Clear Urine pH 6.5 Ur Specific [place] 1.019 Urine Protein 1+ H Urine Glucose (UA) Negative Urine Ketones 1+ H Urine Blood Negative Urine Nitrite Negative Urine Bilirubin Negative Urine Urobilinogen Negative Ur Leukocyte Esterase Negative Urine WBC (Auto) 1-5 Urine RBC (Auto) 5-10 H U Hyaline Cast (Auto) 0 U Epithel Cells (Auto) 0-5 Urine Bacteria (Auto) Negative Adenovirus (PCR) Not Detected B. pertussis DNA (PCR) Not Detected B.parapertussis DNA PCR Not Detected Lyme Disease IgG Ab Lyme Disease IgM Ab C. pneumoniae DNA (PCR) Not Detected Coronavirus OC43 (PCR) Not Detected Coronavirus HKU1 (PCR) Not Detected Coronavirus 229E (PCR) Not Detected SARS-CoV-2 (PCR) Not Detected Coronavirus NL63 (PCR) Not Detected Human Metapneumovir PCR Not Detected Influenza Type A (PCR) Not Detected Influenza Type B (PCR) Not Detected M. pneumoniae (PCR) Not Detected Parainfluenza 1 (PCR) Not Detected Parainfluenza 2 (PCR) Not Detected Parainfluenza 3 (PCR) Not Detected Parainfluenza 4 (PCR) Not Detected RSV (PCR) Not Detected Entero/Rhino (PCR) Not Detected 05/04/23 05/05/23 05/05/23 20:44 05:51 12:33 WBC 7.50 RBC 3.94 L Hgb 12.7 L 12.5 L Hct 35.3 L 36.0 L MCV 89.6 MCH 32.2 MCHC 36.0 RDW Std Deviation 37.2 RDW Coeff of Angelo 11.5 Plt Count 312 MPV 8.6 L Immature Gran % (Auto) Neut % (Auto) Lymph % (Auto) [place] % (Auto) Eos % (Auto) Baso % (Auto) Neut # (Auto) Lymph # (Auto) [place] # (Auto) Eos # (Auto) Baso # (Auto) Immature Gran # (Auto) Sodium 132 L Potassium 3.8 Chloride 99 Carbon Dioxide 25 Anion Gap 8 BUN 10 Creatinine 0.77 Est Cr Clr Drug Dosing 57.4 Est GFR ( Amer) 108.8 Est GFR (Non-Af Amer) 93.9 BUN/Creatinine Ratio 13.0 Glucose 86 Osmolality Lactate 1.2 Calcium 8.9 Phosphorus 2.9 Magnesium 1.6 L Total Bilirubin AST ALT Alkaline Phosphatase Total Creatine Kinase Troponin I High Sens Total Protein Albumin Globulin Albumin/Globulin Ratio TSH Urine Color Urine Appearance Urine pH Ur Specific [place] Urine Protein Urine Glucose (UA) Urine Ketones Urine Blood Urine Nitrite Urine Bilirubin Urine Urobilinogen Ur Leukocyte Esterase Urine WBC (Auto) Urine RBC (Auto) U Hyaline Cast (Auto) U Epithel Cells (Auto) Urine Bacteria (Auto) Adenovirus (PCR) B. pertussis DNA (PCR) B.parapertussis DNA PCR Lyme Disease IgG Ab Positive A Lyme Disease IgM Ab Negative C. pneumoniae DNA (PCR) Coronavirus OC43 (PCR) Coronavirus HKU1 (PCR) Coronavirus 229E (PCR) SARS-CoV-2 (PCR) Coronavirus NL63 (PCR) Human Metapneumovir PCR Influenza Type A (PCR) Influenza Type B (PCR) M. pneumoniae (PCR) Parainfluenza 1 (PCR) Parainfluenza 2 (PCR) Parainfluenza 3 (PCR) Parainfluenza 4 (PCR) RSV (PCR) Entero/Rhino (PCR) 05/05/23 05/06/23 05/06/23 15:30 06:12 07:56 WBC 9.13 RBC 4.43 L Hgb 14.2 Hct 39.9 L MCV 90.1 MCH 32.1 MCHC 35.6 RDW Std Deviation 38.1 RDW Coeff of Angelo 11.6 Plt Count 382 MPV 8.7 L Immature Gran % (Auto) Neut % (Auto) Lymph % (Auto) [place] % (Auto) Eos % (Auto) Baso % (Auto) Neut # (Auto) Lymph # (Auto) [place] # (Auto) Eos # (Auto) Baso # (Auto) Immature Gran # (Auto) Sodium 128 L 132 L Potassium 3.8 3.6 Chloride 92 L 94 L Carbon Dioxide 31 31 Anion Gap 5 7 BUN 12 14 Creatinine 0.84 0.91 Est Cr Clr Drug Dosing 52.6 48.6 Est GFR ( Amer) 105.0 100.7 Est GFR (Non-Af Amer) 90.6 86.9 BUN/Creatinine Ratio 14.3 15.4 Glucose 94 89 Osmolality 277 L Lactate Calcium 9.4 9.7 Phosphorus 3.7 Magnesium 1.8 Total Bilirubin AST ALT Alkaline Phosphatase Total Creatine Kinase Troponin I High Sens Total Protein Albumin Globulin Albumin/Globulin Ratio TSH Urine Color Urine Appearance Urine pH Ur Specific [place] Urine Protein Urine Glucose (UA) Urine Ketones Urine Blood Urine Nitrite Urine Bilirubin Urine Urobilinogen Ur Leukocyte Esterase Urine WBC (Auto) Urine RBC (Auto) U Hyaline Cast (Auto) U Epithel Cells (Auto) Urine Bacteria (Auto) Adenovirus (PCR) B. pertussis DNA (PCR) B.parapertussis DNA PCR Lyme Disease IgG Ab Lyme Disease IgM Ab C. pneumoniae DNA (PCR) Coronavirus OC43 (PCR) Coronavirus HKU1 (PCR) Coronavirus 229E (PCR) SARS-CoV-2 (PCR) Coronavirus NL63 (PCR) Human Metapneumovir PCR Influenza Type A (PCR) Influenza Type B (PCR) M. pneumoniae (PCR) Parainfluenza 1 (PCR) Parainfluenza 2 (PCR) Parainfluenza 3 (PCR) Parainfluenza 4 (PCR) RSV (PCR) Entero/Rhino (PCR) Chest X-Ray 05/04/23 16:22 XR chest 1V not portable HISTORY: weakness COMPARISON: Chest CT 09/15/2022. FINDINGS: Emphysema again noted. No pneumothorax. No pleural effusions. Stable scarlike densities again noted within the right lung apex. No new focal lung consolidations to suggest a pneumonia. No evidence for pulmonary edema. The heart is normal in size for no acute fractures identified. IMPRESSION: No significant change compared to the prior study. No acute process. Emphysema again noted. ACT 112: Negative or not required by law. Electronically signed by: Rahul Kerr M.D. 05/04/2023 4:49 PM Hospital Course (1) Fatigue: (2) Myalgia: (3) Nausea: (4) Hyponatremia: (5) Hypomagnesemia: (6) HTN (hypertension): (7) Emphysema of lung: Plan Pt is a 68 yo male with a past medical history of emphysema, HTN, current smoker who presents to the hospital on 05/04/23 for generalized illness. Fatigue/Myalgia/Nausea: - Uncertain etiology. - CXR wnl, UA showed 1+ protein and some red cels, but no evidence of UTI, blood cultures negative - Lyme IgG +, A western blot was ordered - Suspect viral illness, but to cover for tick-borne illness as presentation is very nonspecific we discharged patient with doxycycline for a total of 7 days Hyponatremia, chronic: - Last NA: 132 - Seem chronic, low serum osmolality, seem to be occasioned by HCTZ, it was hold on discharge. -We recommend repeat as outpatient, and re evaluation. Hypomagnesia: - Mag 1.6 resolved after replacement HTN: - Orthostatic V/s negative -Hold HCTZ, see above -Lisinopril 20 mg Emphysema: - Chronic cough - Continue Albuterol PRN Total Time Total Time Spent Total Time Spent (In Minutes): see attending attestation Discharge Plan Discharge Items Patient Disposition: Home - Self-Care Reason For Visit: ILLNESS Discharge Diagnosis: Fatigue Condition on Discharge: Fair Activity: Per Instructions section Non-emergency contact: Primary Care Provider Call non-emergency contact if: you have any medication questions, your symptoms worsen, your pain is unusual for you and your temperature is above 101 Follow-up/Referrals: Ada Ball MD [Primary Care Provider] - Diet: Regular Addtl Attending Provider Instructions: You were admitted to the hospital due to generalized illness, fatigue, myalgias and nausea and sweats. You were found with antibodies positive for Lyme disease, a second test called Western Blot was ordered. You were treated with IV antibiotics as prophylaxis measurement. It's important to follow this results in a week. You will be discharge today with oral antibiotics Additionally, low sodium levels were found on your labs. We hold the medication called hydrochlorothiazide. it's important to follow up in the next couple of days with a repeat of blood work up and with your PCP. Medications: Your medication list has been reviewed and reconciled upon discharge to ensure accuracy and continuity of care. An updated list of all your medications is included with your hospital discharge paperwork. Please review this list closely, and make note of any changes. We sent a new medications at your pharmacy: Doxycycline 100 mg twice a day for 5 days Lisinopril 20 mg, take 1 tab daily. Nasal Allergy spray A discharge summary will be sent to your primary care physician to ensure continuity of care. Please bring this discharge summary with you to your next office appointment so that your provider can review it at that time. Follow-up appointments: Make a follow-up appointment with your PCP within the next couple of days. It is very important that you follow up with them shortly after discharge from the hospital. If you have any issues filling these prescriptions, please call [phone] and ask to leave a message for . YOUR NAME HERE. Take your medications as instructed; do not skip a dose of your medicines. Make sure all of your doctors know every medicine you are taking (including [id number] medicines, vitamins, and supplements). Call your primary care provider before taking any new medicines (including over- the- counter medicines, vitamins, and supplements), because some of these may interact with your current medications, or may make your symptoms worse. Tell your primary care provider if you cannot afford your medications. CALL 911 OR GO TO THE EMERGENCY DEPARTMENT if you experience any of the following: Sudden, severe abdominal pain or nausea/vomiting Severe chest pain, or chest pain that radiates (moves) to your jaw or arm Sudden, severe shortness of breath or difficulty breathing Thank you for allowing us to participate in your care. Pending Studies at Discharge: Yes Studies:: Western blot Stand-Alone Forms: My [facility], Smoking Cessation Medications and DC Order Prescriptions: New lisinopril 20 mg Tablet 20 mg PO QAM 30 Days Qty: 30 0RF doxycycline hyclate 100 mg capsule 100 mg PO BID 5 Days Qty: 10 0RF triamcinolone acetonide [Nasal Allergy] 55 mcg aerosol,spray 1 spray intranasal DAILY Qty: 16.9 0RF Rx Instructions: administer into each nostril Continued albuterol sulfate 90 mcg/actuation HFA aerosol inhaler 2 puff INH QID PRN (Reason: shortness of breath or wheezing) Qty: 6.7 3RF multivitamin Tablet 1 tab PO 3XWK cholecalciferol (vitamin D3) 1,250 mcg (50,000 unit) capsule 50,000 unit PO WE Rx Instructions: TAKE 1 CAP WEEKLY, tu. Discontinued lisinopril-hydrochlorothiazide 20-25 mg tablet 1 tab PO DAILY Qty: 90 1RF Discharge Orders: Discharge Order (Routine); Ordered 05/06/23 Ordered By: Marya Metcalf Admission Data Admit Date/Time: 05/04/23 22:53 Attending Provider: Vanessa Palomino Admit Provider: Juliann Houston Primary Care Provider: Ada Ball Other Providers: Karolyn Gary Other Interventions: Discharge Summary Assessment (RN) Last Done: 05/06/23 11:49 Supervising Physician Co-Signing Physician Notes Resident Physician Supervision Note: I independently interviewed and examined the patient and verified the young history and physical, reviewed labs and image studies and agree with resident findings and care plan. Presented to ED with weakness. Has had decreased appetite. Also noted to have low sodium level which drop down to 128 day before discharge. Presentation likely multifactorial - patient has noted decreased appetite with increased post nasal drip leading to decreased appetite. Received IVF. Also started on doxycycline for empiric treatment of tick borne illness. HCTZ held. Home with doxycycline to finish 10 day course. Astelin nasal spray for PND. Stop HCTZ. Close outpatient f/u for Antihypertensive med titration. Resident Activity Tracking Resident Involvement: Resident Care Provided Care Provided: Adult Hospital Medicine
--- NOTE | 2023-05-08 12:45 | Coding Query ---
[employer]AL[employer] To promote full compliance with coding requirements relating to patient care, physician participation is requested in all cases of manager underwriting uncertainty. Please assist us with the question(s) below: Please place an X within the parenthesis (x). If other, please document: BMI under 16.0 If possible, please check the box that provides a more specific diagnosis: ( ) Mild malnutrition ( ) Moderate malnutrition ( x ) Severe malnutrition ( ) Protein malnutrition (kwashiorkor) ( ) Severe protein calorie malnutrition ( ) Protein calorie malnutrition, unspecified ( ) Other (please specify): Was this diagnosis present on admission? Please place an X within the parenthesis (x). ( x ) Present on admission ( ) Not present on admission ( ) Unable to be clinically determined Thank you Juliann MIRANDA
[2023-05-09 22:09] LABS: 18KDIGG Band REACTIVE; 23KDIGG Band NON-REACTIVE; 23KDIGM Band NON-REACTIVE; 28KDIGG Band NON-REACTIVE; 30KDIGG Band NON-REACTIVE; 39KDIGG Band REACTIVE; 39KDIGM Band NON-REACTIVE; 41KDIGG Band REACTIVE; 41KDIGM Band NON-REACTIVE; 45KDIGG Band NON-REACTIVE; 58KDIGG Band REACTIVE; 66KDIGG Band NON-REACTIVE; 93KDIGG Band NON-REACTIVE; Lyme Antibodies, WB IgG NEGATIVE (NEGATIVE); Lyme Antibodies, WB IgM NEGATIVE (NEGATIVE)
[2023-05-10] MEDS ORDERED: ERGOCALCIFEROL 50,000 UNITS 1250 MCG CAP PO SCH (09:00)
== END 2023-05-06 13:01 | disposition home or self-care (01) | DRG 640 ==
LOC: ED 16:04 → SUATTDRO 22:53 → 3W 22:53